=== PATIENT | male | born 1975 | race Caucasian/White ===

== ENCOUNTER 2018-05-15 15:23 | Observation (INO) | payer OTHER ==
[2018-05-15] VITALS (7 sets, daily range): BP systolic 112–145; BP diastolic 72–97; PULSE 81–91; TEMP 98.8–100.3
[~2018-05-15] VITALS: Ht 190.5 cm; Wt 110.6 kg
[2018-05-15 16:11] LABS: BASO % 0.2 % (0.0-2.0); EOS % 0.2 % (0-4.0); GRAN # 12.1 (1.4-6.5); HEMATOCRIT 43.3 % (42.0-52.0); HEMOGLOBIN 15.2 g/dl (13.5-18.0); LYMPH # 0.8 (1.2-3.4); LYMPH % 5.4 % (20.0-51.0); MEAN CELL VOLUME 89 fl (80.0-100.0); MEAN CORPUSCULAR HEMOGLOBIN 31 pg (27.0-31.0); MEAN CORPUSCULAR HGB CONC 35 g/dl (33.0-37.0); MEAN PLATELET VOLUME 10.1 fl (7.4-10.4); MONO # 1.1 (0.1-0.6); MONO % 7.6 % (1.7-9.3); RED BLOOD COUNT 4.89 M/mm3 (4.20-5.60); REDCELL DISTRIBUTION WIDTH-CV 12.6 % (11.5-14.5)
[2018-05-15] MEDS ORDERED: LIPITOR 40MG TA40 MG PO (16:16)
[2018-05-15] MEDS ORDERED: HCTZ12.5TAB PO (16:16)
[2018-05-15] MEDS ORDERED: PRILOSEC 20MG20 MG PO (16:16)
[2018-05-15] MEDS ORDERED: CLARITIN 1010 MG/TAB PO (16:16)
[2018-05-15] MEDS ORDERED: ZOLOFT 100MG100 MG PO (16:17)
[2018-05-15] MEDS ORDERED: SINGULAIR 110 MG/TAB PO (16:17)
[2018-05-15] MEDS ORDERED: ATARAX 10MG10 MG/TAB PO (16:18)
[2018-05-15 16:21] LABS: ALBUMIN 4.6 gm/dL (3.5-5.0); BILIRUBIN,TOTAL 0.8 mg/dL (0.0-1.0); C-REACTIVE PROTEIN 0.9 mg/dL (0.0-0.9); CALCIUM 9.6 mg/dL (8.4-10.2); CREATININE, serum 0.95 mg/dL (0.66-1.25); POTASSIUM 3.9 mmol/L (3.4-5.0); TOTAL PROTEIN 7.6 gm/dL (6.4-8.2)
[2018-05-15 16:25] LABS: PLATELET COUNT 142 K/mm3 (130-400)
[2018-05-16 00:30] VITALS: BP 109/75; PULSE 91
[2018-05-16 01:00] VITALS: BP 115/73; PULSE 91
[2018-05-16 02:00] VITALS: BP 108/71; PULSE 93
[2018-05-16 03:00] VITALS: BP 114/73; PULSE 93; TEMP 98.6
[2018-05-16 07:54] VITALS: BP 113/76; PULSE 88; TEMP 98.8
== END 2018-05-16 10:45 | disposition home or self-care (01) ==
LOC: COL.ER 15:23 → SURG 17:15
PROVIDERS: Emergency Medicine
DX: K35.80 Unspecified acute appendicitis (principal); I10 Essential (primary) hypertension; E78.5 Hyperlipidemia, unspecified; F32.9 Major depressive disorder, single episode, unspecified; K21.9 Gastro-esophageal reflux disease without esophagitis
CPT/HCPCS: G0378; J0696; J1100; J1170; J2405; J2550; J2704; J2710; J3010; J7030; Q9967